=== PATIENT | female | born 1990 | race Caucasian/White ===

== ENCOUNTER 2017-12-09 15:50 | Emergency (ER) | payer SELFPAY ==
[2017-12-09 16:57] LABS: BASOPHILS 0.5 % (0-2); EOSINOPHILS 0.9 % (0-7); HEMATOCRIT 35.8 % (36.0-48.0); IMMATURE GRANULOCYTES 0.3 % (0-5); LYMPHOCYTES 29.3 % (15-50); MCH 31.6 pg (26.0-34.0); MCHC 33.5 g/dL (31.0-37.0); MCV 94.2 fL (80.0-100.0); MEAN PLATELET VOLUME 9.8 fL (7.4-10.4); MONOCYTES 4.1 % (2-11); NEUTROPHILS 64.9 % (40-80); PLATELET COUNT 176 10x3/uL (130-400); RDW 12.7 % (11.5-14.5); WBC 7.9 10x3/uL (4.8-10.8)
[2017-12-09 17:14] LABS: HCG SERUM POSITIVE (NEGATIVE)
== END 2017-12-09 21:00 | disposition home or self-care (01) ==
LOC: D.ER 15:50
PROVIDERS: Emergency Medicine
DX: O20.9 Hemorrhage in early pregnancy, unspecified (principal); Z3A.10 10 weeks gestation of pregnancy

== ENCOUNTER 2017-12-10 14:28 | Emergency (ER) | payer SELFPAY ==
[2017-12-10 16:49] LABS: BASOPHILS 0.2 % (0-2); EOSINOPHILS 0.8 % (0-7); HEMOGLOBIN 13.1 g/dL (12-16); IMMATURE GRANULOCYTES 0.2 % (0-5); LYMPHOCYTES 27.8 % (15-50); MCH 31.6 pg (26.0-34.0); MCHC 33.6 g/dL (31.0-37.0); MEAN PLATELET VOLUME 9.6 fL (7.4-10.4); MONOCYTES 3.8 % (2-11); NEUTROPHILS 67.2 % (40-80); PLATELET COUNT 192 10x3/uL (130-400); RBC 4.15 10x6/uL (4.00-5.40); RDW 12.6 % (11.5-14.5); WBC 9.1 10x3/uL (4.8-10.8)
== END 2017-12-10 19:37 | disposition home or self-care (01) ==
LOC: D.ER 14:28
PROVIDERS: Nurse Practitioner Family
DX: O20.9 Hemorrhage in early pregnancy, unspecified (principal); Z3A.11 11 weeks gestation of pregnancy

== ENCOUNTER 2019-08-29 09:38 | Emergency (ER) | payer MEDICAID ==
[~2019-08-29] VITALS: Ht 165.1 cm; Wt 53.6 kg
[2019-08-29 09:42] VITALS: Ht 165.1 cm; Wt 53.6 kg
[2019-08-29] MEDS ORDERED: VALIUM5 MG PO (09:45)
[2019-08-29] MEDS ORDERED: MIRALAX17 GM PO (09:45)
[2019-08-29] MEDS ORDERED: CHRONULAC30 ML PO (09:46)
[2019-08-29] MEDS ORDERED: VALTREX500 MG PO (09:46)
[2019-08-29] MEDS ORDERED: TYLENOL W/CODEI1 TAB PO (09:47)
[2019-08-29 10:17] LABS: BASOPHILS 0.3 % (0-2); EOSINOPHILS 0.8 % (0-7); HEMATOCRIT 38.7 % (36.0-48.0); HEMOGLOBIN 12.7 g/dL (12-16); IMMATURE GRANULOCYTES 0.1 % (0-5); LYMPHOCYTES 42.7 % (15-50); MCH 31.3 pg (26.0-34.0); MCHC 32.8 g/dL (31.0-37.0); MCV 95.3 fL (80.0-100.0); MEAN PLATELET VOLUME 9.3 fL (7.4-10.4); NEUTROPHILS 51.1 % (40-80); PLATELET COUNT 197 10x3/uL (130-400); RBC 4.06 10x6/uL (4.00-5.40); RDW 12.8 % (11.5-14.5); WBC 7.6 10x3/uL (4.8-10.8)
[2019-08-29 10:20] LABS: APPEARANCE CLEAR (CLEAR); BILIRUBIN NEGATIVE (NEGATIVE); COLOR STRAW (YELLOW); GLUCOSE NEGATIVE (NEGATIVE); KETONE NEGATIVE (NEGATIVE); NITRITE NEGATIVE (NEGATIVE); PROTEIN NEGATIVE (NEGATIVE); SPECIFIC GRAVITY 1.015 (1.005-1.020); UROBILINOGEN NORMAL (NORMAL)
[2019-08-29 10:32] LABS: ALBUMIN 3.8 g/dL (3.4-5.0); ALKALINE PHOSPHATASE 55 U/L (46-116); ALT (SGPT) 34 U/L (10-68); BILIRUBIN - TOTAL 0.59 mg/dL (0.2-1.3); CALC OSMOLALITY 278 mosm/kg (275-300); CALCIUM 8.2 mg/dL (8.5-10.1); CARBON DIOXIDE 29.3 mmol/L (21.0-32.0); CHLORIDE - SERUM 106 mmol/L (98-107); CREATININE - SERUM 0.8 mg/dL (0.6-1.3); GLUCOSE 89 mg/dL (74-106); POTASSIUM - SERUM 3.7 mmol/L (3.5-5.1); SODIUM 141 mmol/L (136-145); UREA NITROGEN 9 mg/dL (7-18); eGFR NON AFRICAN AMERICAN 89 mL/min (90-120)
[2019-08-29 10:35] LABS: AMYLASE - SERUM 60 U/L (25-115); LIPASE 134 U/L (73-393); TROPONIN-I < 0.017 ng/mL (0.000-0.060)
[2019-08-29 14:14] VITALS: BP 129/75
== END 2019-08-29 14:15 | disposition home or self-care (01) ==
LOC: D.ER 09:38
PROVIDERS: Family Medicine
DX: K59.00 Constipation, unspecified (principal)

== ENCOUNTER → 2019-11-13 08:44 | Outpatient (CLI) | payer MEDICAID ==
[2019-08-29 09:42] VITALS: BMI 19.6
[~2019-11-13 08:44] MED LIST: CHRONULAC30 ML PO; MIRALAX17 GM PO; TYLENOL W/CODEI1 TAB PO; VALIUM5 MG PO; VALTREX500 MG PO
[2019-11-13 10:07] LABS: HCG SERUM NEGATIVE (NEGATIVE)
== END | disposition home or self-care (01) ==
LOC: D.NM 08:30
PROVIDERS: ATTEND Internal Medicine Gastroenterology
DX: R11.2 Nausea with vomiting, unspecified (principal); K59.00 Constipation, unspecified; R19.4 Change in bowel habit